=== PATIENT | male | born 1950 | race Hispanic/Latino ===

== ENCOUNTER 2021-06-13 09:23 | Inpatient (IN) | payer SELFPAY ==
[2021-06-13] MEDS ORDERED: niCARdipine 25 MG/10 ML VIAL ONE (10:09)
[2021-06-13 10:19] LABS: ALT (SGPT) 27 U/L (8-55); AST (SGOT) 31 U/L (5-34); Albumin 3.7 g/dL (3.4-4.8); Alkaline Phosphatase 123 U/L (40-110); Anion Gap 12 mmol/L (10-20); BUN (Urea Nitrogen) 14 mg/dL (8.4-25.7); Calc. Creatinine Clearance 0 mL/min (70-130); Calcium 8.8 mg/dL (7.8-10.44); Carbon Dioxide 21 mmol/L (23-31); Chloride 109 mmol/L (98-107); Globulin 3.2 g/dL (2.4-3.5); Glucose 118 mg/dL (83-110); Potassium 3.8 mmol/L (3.5-5.1); Protein, Total 6.9 g/dL (5.8-8.1); Sodium 138 mmol/L (136-145)
[2021-06-13 10:40] LABS: INR-International Normal Ratio 1.1; Prothrombin Time 14.6 sec (12.0-14.7)
[2021-06-13 10:41] LABS: PTT 31.7 sec (22.9-36.1)
[2021-06-13 10:52] LABS: #Eosinphils 0.1 thou/uL (0.0-0.7); #Lymphocytes 0.6 thou/uL (1.20-3.40); #Monocytes 0.3 thou/uL (0.11-0.59); #Neutrophils 2.1 thou/uL (1.40-6.50); %Eosinophils 1.6 % (0.0-10.0); %Lymphocytes 20.8 % (21.0-51.0); %Monocytes 8.6 % (0.0-10.0); %Neutrophils 68.9 % (42.0-75.0); Hemoglobin 13.1 g/dL (14.0-18.0); Mean Corpuscular HGB CONC 33.7 g/dL (32.0-36.0); Mean Corpuscular Hemoglobin 30.9 pg (27.0-31.0); Mean Corpuscular Volume 91.6 fL (78.0-98.0); Platelet Count 56 thou/uL (130-400); RBC Distribution Width 13.2 % (11.5-14.5); Red Blood Cell (RBC) Count 4.25 mill/uL (4.70-6.10)
[2021-06-13 10:53] LABS: Platelet Morphology Comment Appears Decreased
[2021-06-13] MEDS ORDERED: Labetalol HCl 100 MG/20 ML VIAL SLOW IVP PRN (11:41)
[2021-06-13 11:44] LABS: SARS-CoV-2 NAA Rapid Test Not Detected (NotDetected)
[2021-06-13 13:06] LABS: Troponin I Less than 0.010 ng/mL (< 0.028)
[2021-06-13] MEDS ORDERED: niCARdipine 25 MG in Sodium Chloride 0.9% 250 ML 250 ML IVPB PRN (13:55)
[2021-06-13] MEDS ORDERED: Electrolyte Replacement Protocol 1 EACH IVPB ONE (13:55)
[2021-06-13] MEDS ORDERED: Ondansetron ODT 4 MG TAB PO PRN (13:57)
[2021-06-13] MEDS ORDERED: Ondansetron PF 4 MG/2 ML Vial IVP PRN (13:57)
[2021-06-13] MEDS ORDERED: diphenhydrAMINE 25 MG CAP ONE (14:12)
[2021-06-13] MEDS ORDERED: Electrolyte Replacement Protocol FS PRN (14:15)
[2021-06-13] MEDS ORDERED: diphenhydrAMINE 50 MG/ML VIAL ONE (14:23)
[2021-06-13] MEDS ORDERED: Metoclopramide HCl 10 MG/2 ML VIAL ONE (14:23)
[2021-06-13] MEDS ORDERED: FLU VACC QS2021-22(65YR UP)/PF 240 MCG/0.7 ML SYRINGE IM ONE (16:30)
[2021-06-13] MEDS: Acetaminophen 325 MG TAB PO PRN (17:59)
[2021-06-13] MEDS: Sodium Chloride 0.9% 1,000 ML IV SCH (20:10)
[2021-06-13] MEDS: Famotidine 20 MG TAB PO SCH (20:11)
[2021-06-13] MEDS: Docusate 100 MG CAP PO SCH (20:11)
[2021-06-13] MEDS: Nadolol 40 MG TAB PO SCH (20:11)
[2021-06-13] MEDS: Famotidine/PF 20 mg/2ml Vial SLOW IVP SCH (20:33)
[2021-06-14] MEDS: Acetaminophen 325 MG TAB PO PRN ×2 (00:25→20:06)
[2021-06-14 04:03] LABS: #Eosinphils 0.1 thou/uL (0.0-0.7); #Lymphocytes 0.5 thou/uL (1.20-3.40); #Monocytes 0.2 thou/uL (0.11-0.59); #Neutrophils 1.6 thou/uL (1.40-6.50); %Basophils 1.2 % (0.0-1.0); %Eosinophils 3.2 % (0.0-10.0); %Lymphocytes 20.8 % (21.0-51.0); %Monocytes 9.3 % (0.0-10.0); %Neutrophils 65.6 % (42.0-75.0); Hemoglobin 12.1 g/dL (14.0-18.0); Mean Corpuscular HGB CONC 33.6 g/dL (32.0-36.0); Mean Corpuscular Hemoglobin 30.7 pg (27.0-31.0); Mean Corpuscular Volume 91.3 fL (78.0-98.0); Mean Platelet Volume 9.5 fL (7.4-10.4); Platelet Count 62 thou/uL (130-400); RBC Distribution Width 12.9 % (11.5-14.5); Red Blood Cell (RBC) Count 3.95 mill/uL (4.70-6.10); White Blood Cell (WBC) Count 2.5 thou/uL (4.8-10.8)
[2021-06-14 04:06] LABS: Anion Gap 11 mmol/L (10-20); BUN (Urea Nitrogen) 13 mg/dL (8.4-25.7); Calc. Creatinine Clearance 66 mL/min (70-130); Calcium 8.6 mg/dL (7.8-10.44); Carbon Dioxide 20 mmol/L (23-31); Chloride 114 mmol/L (98-107); Glucose 95 mg/dL (83-110); Potassium 3.7 mmol/L (3.5-5.1); Sodium 141 mmol/L (136-145)
[2021-06-14 08:13] LABS: Magnesium 1.9 mg/dL (1.6-2.6)
[2021-06-14] MEDS: Famotidine 20 MG TAB PO SCH ×3 (09:22→20:27)
[2021-06-14] MEDS: Famotidine/PF 20 mg/2ml Vial SLOW IVP SCH (09:22)
[2021-06-14] MEDS: Nadolol 40 MG TAB PO SCH ×3 (09:22→20:27)
[2021-06-14] MEDS: Docusate 100 MG CAP PO SCH ×3 (09:22→20:25)
[2021-06-14] MEDS: Sodium Chloride 0.9% 1,000 ML IV SCH (09:22)
[2021-06-14] MEDS ORDERED: Magnesium 2 GM/50 ML 2 GM in Premix Bag 1 BAG IVPB SCH (13:15)
[2021-06-14] MEDS: hydrALAZINE 20 MG/ML VIAL SLOW IVP PRN ×2 (16:22→20:34)
[2021-06-14] MEDS: Spironolactone 25 MG TAB PO SCH ×2 (20:07→20:26)
[2021-06-14] MEDS: Acetaminophen 650 MG Suppository PR PRN (20:35)
[2021-06-14] MEDS ORDERED: hydrALAZINE 25 MG TAB PO SCH (21:00)
[2021-06-15 05:07] VITALS: BMI 18.1
[2021-06-15] MEDS: Acetaminophen 650 MG Suppository PR PRN ×3 (05:08→23:37)
[2021-06-15] MEDS: hydrALAZINE 20 MG/ML VIAL SLOW IVP PRN ×4 (08:19→23:38)
[2021-06-15] MEDS: Docusate 100 MG CAP PO SCH ×2 (08:26→20:43)
[2021-06-15] MEDS: Nadolol 40 MG TAB PO SCH (11:44)
[2021-06-15] MEDS: Furosemide 40 MG TAB PO SCH (11:51)
[2021-06-15] MEDS: Emtricitabine/Tenofovir 200-300 MG TAB PO SCH (11:51)
[2021-06-15] MEDS: Famotidine 20 MG TAB PO SCH ×2 (11:51→20:43)
[2021-06-15] MEDS: Spironolactone 25 MG TAB PO SCH ×2 (11:51→16:06)
[2021-06-15] MEDS ORDERED: Morphine 4 MG/ML VIAL SLOW IVP SCH (13:45)
[2021-06-15] MEDS ORDERED: Dextrose 5 % And 0.9 % NaCl 1,000 ML IV SCH (16:00)
[2021-06-15 22:16] LABS: Troponin I 0.011 ng/mL (< 0.028)
[2021-06-16] MEDS: Spironolactone 25 MG TAB PO SCH ×2 (09:09→18:07)
[2021-06-16] MEDS: Docusate 100 MG CAP PO SCH ×2 (09:09→20:49)
[2021-06-16] MEDS: Famotidine 20 MG TAB PO SCH ×2 (09:09→20:48)
[2021-06-16 09:28] LABS: #Eosinphils 0.1 thou/uL (0.0-0.7); #Lymphocytes 0.8 thou/uL (1.20-3.40); #Monocytes 0.4 thou/uL (0.11-0.59); #Neutrophils 3.2 thou/uL (1.40-6.50); %Basophils 0.7 % (0.0-1.0); %Lymphocytes 17.6 % (21.0-51.0); %Monocytes 8.3 % (0.0-10.0); %Neutrophils 71.5 % (42.0-75.0); Hemoglobin 14.1 g/dL (14.0-18.0); Mean Corpuscular HGB CONC 33.3 g/dL (32.0-36.0); Mean Corpuscular Hemoglobin 30.7 pg (27.0-31.0); Mean Platelet Volume 9.9 fL (7.4-10.4); Platelet Count 71 thou/uL (130-400); RBC Distribution Width 13.5 % (11.5-14.5); White Blood Cell (WBC) Count 4.4 thou/uL (4.8-10.8)
[2021-06-16 09:43] LABS: ALT (SGPT) 34 U/L (8-55); AST (SGOT) 60 U/L (5-34); Albumin 3.6 g/dL (3.4-4.8); Alkaline Phosphatase 111 U/L (40-110); Anion Gap 12 mmol/L (10-20); BUN (Urea Nitrogen) 21 mg/dL (8.4-25.7); Bilirubin, Total 2.1 mg/dL (0.2-1.2); Calc. Creatinine Clearance 63 mL/min (70-130); Calcium 8.6 mg/dL (7.8-10.44); Carbon Dioxide 21 mmol/L (23-31); Chloride 112 mmol/L (98-107); Globulin 3.2 g/dL (2.4-3.5); Glucose 95 mg/dL (83-110); Magnesium 1.9 mg/dL (1.6-2.6); Phosphorus 2.8 mg/dL (2.3-4.7); Potassium 3.4 mmol/L (3.5-5.1); Protein, Total 6.8 g/dL (5.8-8.1); Sodium 142 mmol/L (136-145)
[2021-06-16] MEDS ORDERED: Potassium Chloride 20 MEQ TAB PO SCH (10:45)
[2021-06-16] MEDS: Emtricitabine/Tenofovir 200-300 MG TAB PO SCH (10:49)
[2021-06-16] MEDS ORDERED: Magnesium 2 GM/50 ML 2 GM in Premix Bag 1 BAG IVPB SCH (11:00)
[2021-06-16] MEDS: Nadolol 40 MG TAB PO SCH (11:44)
[2021-06-16] MEDS: Furosemide 40 MG TAB PO SCH (11:44)
[2021-06-16] MEDS ORDERED: D5 1/2 NS w/20 mEq KCL 1,000 ML IV SCH ×2 (15:45→16:22)
[2021-06-16] MEDS: hydrALAZINE 20 MG/ML VIAL SLOW IVP PRN (16:46)
[2021-06-17] MEDS: Spironolactone 25 MG TAB PO SCH ×2 (10:11→18:24)
[2021-06-17] MEDS: Nadolol 40 MG TAB PO SCH (10:11)
[2021-06-17] MEDS: Emtricitabine/Tenofovir 200-300 MG TAB PO SCH (10:11)
[2021-06-17] MEDS: Famotidine 20 MG TAB PO SCH ×2 (10:12→21:30)
[2021-06-17] MEDS: Furosemide 40 MG TAB PO SCH (10:12)
[2021-06-17] MEDS: Docusate 100 MG CAP PO SCH ×2 (10:14→21:30)
[2021-06-17] MEDS: hydrALAZINE 20 MG/ML VIAL SLOW IVP PRN (14:03)
[2021-06-17] MEDS ORDERED: traMADol HCl 50 MG TAB PO SCH (21:15)
[2021-06-18] MEDS: Emtricitabine/Tenofovir 200-300 MG TAB PO SCH (11:42)
[2021-06-18] MEDS: Spironolactone 25 MG TAB PO SCH (11:42)
[2021-06-18] MEDS: Famotidine 20 MG TAB PO SCH (11:43)
[2021-06-18] MEDS: Furosemide 40 MG TAB PO SCH (11:43)
[2021-06-18] MEDS: Nadolol 40 MG TAB PO SCH (11:43)
[2021-06-18 12:21] VITALS: BP 155/88; TEMP 97.9
[2021-06-18] MEDS: Docusate 100 MG CAP PO SCH (12:49)
== END 2021-06-18 16:35 | disposition home or self-care (01) | DRG 64 ==
LOC: ERS 09:23 → ERHOLD 12:00 → NEURO 15:35 → IMCU/EMU 15:48 → NEURO 06-14 19:31
PROVIDERS: ADMIT Internal Medicine; ATTEND Internal Medicine
PROC: 6A550Z2 Pheresis of Platelets, Single (ICD-10-PCS; principal; 2021-06-13)
DX: I61.0 Nontraumatic intracerebral hemorrhage in hemisphere, subcortical (principal); E43 Unspecified severe protein-calorie malnutrition; G81.94 Hemiplegia, unspecified affecting left nondominant side; D61.818 Other pancytopenia; Z68.1 Body mass index [BMI] 19.9 or less, adult; Z21 Asymptomatic human immunodeficiency virus [HIV] infection status; Z20.822 Contact with and (suspected) exposure to COVID-19; R29.810 Facial weakness; B18.2 Chronic viral hepatitis C; I10 Essential (primary) hypertension; E87.6 Hypokalemia; E83.42 Hypomagnesemia; K74.60 Unspecified cirrhosis of liver; R13.10 Dysphagia, unspecified; R29.711 NIHSS score 11; Z79.899 Other long term (current) drug therapy; Z87.442 Personal history of urinary calculi
CPT/HCPCS: 0240U; 36415; 36416; 36430; 70450; 71045; 74230; 80048; 80053; 83735; 84100; 84484; 85025; 85610; 85730; 86850; 86900; 86901; 90471; 90732; 93005; 93010; 96365; 96366; 96375; G0009; J0360; J1200; J2270; J2765; J3475; J3480; J7042; J7050; P9035

== ENCOUNTER 2023-01-13 12:07 | Inpatient (IN) | payer MEDICAID, SELFPAY ==
[~2023-01-13 12:07] MED LIST: Iopamidol-370 76% 500 ML MDV (1 ML CHARGE) ONE
[2023-01-13 12:59] LABS: #Eosinphils 0.1 thou/uL (0.0-0.7); #Monocytes 0.3 thou/uL (0.11-0.59); %Basophils 1.1 % (0.0-1.0); %Eosinophils 1.9 % (0.0-10.0); %Lymphocytes 13.6 % (21.0-51.0); %Monocytes 9.4 % (0.0-10.0); Hematocrit 31.6 % (42.0-52.0); Hemoglobin 9.3 g/dL (14.0-18.0); Mean Corpuscular HGB CONC 29.4 g/dL (32.0-36.0); Mean Corpuscular Hemoglobin 22.8 pg (27.0-31.0); Mean Corpuscular Volume 77.5 fl (78.0-98.0); Mean Platelet Volume 11.8 fL (7.4-10.4); RBC Distribution Width 16.2 % (11.5-14.5); Red Blood Cell (RBC) Count 4.08 mill/uL (4.70-6.10); White Blood Cell (WBC) Count 2.7 10x3/uL (4.8-10.8)
[2023-01-13 13:02] LABS: Platelet Count 63 10x3/uL (130-400)
[2023-01-13 13:14] LABS: ALT (SGPT) 19 U/L (8-55); AST (SGOT) 23 U/L (5-34); Albumin 3.4 g/dL (3.4-4.8); Alkaline Phosphatase 114 U/L (40-110); Anion Gap 13 mmol/L (10-20); BUN (Urea Nitrogen) 11 mg/dL (8.4-25.7); Bilirubin, Total 0.9 mg/dL (0.2-1.2); Calc. Creatinine Clearance 0 mL/min (70-130); Calcium 8.7 mg/dL (7.8-10.44); Carbon Dioxide 22 mmol/L (23-31); Chloride 108 mmol/L (98-107); Estimated GFR 91; Globulin 3.9 g/dL (2.4-3.5); Glucose 127 mg/dL (83-110); Lipase 28 U/L (8-78); Protein, Total 7.3 g/dL (5.8-8.1); Sodium 139 mmol/L (136-145)
[2023-01-13] MEDS ORDERED: Aspirin Chewable 81 MG TAB ONE (14:57)
[2023-01-13] MEDS ORDERED: LevoFLOXacin 750 mg/D5W 150 ml Premix Bag ONE (14:57)
[2023-01-13] MEDS ORDERED: Cefepime 2 GM VIAL ONE (14:57)
[2023-01-13 17:35] VITALS: BMI 21.9
[2023-01-13 20:10] LABS: Troponin I Less than 0.010 ng/mL (< 0.028)
[2023-01-13] MEDS: Acetaminophen 325 MG TAB PO PRN (20:35)
[2023-01-13 23:02] LABS: Troponin I Less than 0.010 ng/mL (< 0.028)
[2023-01-14] MEDS: Cefepime 1 GM in Sodium Chloride 0.9% 100 ML IVPB SCH ×2 (02:12→14:25)
[2023-01-14 03:49] LABS: Strep pneumo Urine Ag NEGATIVE (NEGATIVE)
[2023-01-14] MEDS ORDERED: Emtricitabine/Tenofovir 200-300 MG TAB PO SCH (09:00)
[2023-01-14] MEDS ORDERED: Non-Formulary Item 1 EACH (Dolutegravir Sodium [Tivicay] 50 MG Tablet) PO SCH (09:00)
[2023-01-14] MEDS: Doxycycline 100 MG CAP PO SCH ×2 (09:05→20:05)
[2023-01-14] MEDS: Emtricitabine/Tenofovir 200-300 MG TAB PO SCH (09:06)
[2023-01-14 10:19] LABS: #Eosinphils 0.1 thou/uL (0.0-0.7); #Monocytes 0.2 thou/uL (0.11-0.59); #Neutrophils 1.6 thou/uL (1.40-6.50); %Basophils 0.9 % (0.0-1.0); %Eosinophils 2.3 % (0.0-10.0); %Lymphocytes 15.2 % (21.0-51.0); %Monocytes 8.8 % (0.0-10.0); %Neutrophils 72.8 % (42.0-75.0); Hematocrit 32.3 % (42.0-52.0); Hemoglobin 9.6 g/dL (14.0-18.0); Mean Corpuscular HGB CONC 29.7 g/dL (32.0-36.0); Mean Corpuscular Hemoglobin 23.2 pg (27.0-31.0); Mean Corpuscular Volume 78.2 fl (78.0-98.0); RBC Distribution Width 16.4 % (11.5-14.5); Red Blood Cell (RBC) Count 4.13 mill/uL (4.70-6.10); White Blood Cell (WBC) Count 2.2 10x3/uL (4.8-10.8)
[2023-01-14 10:46] LABS: Platelet Count 57 10x3/uL (130-400)
[2023-01-14 10:49] LABS: Anion Gap 13 mmol/L (10-20); BUN (Urea Nitrogen) 12 mg/dL (8.4-25.7); Calc. Creatinine Clearance 57 mL/min (70-130); Calcium 8.9 mg/dL (7.8-10.44); Carbon Dioxide 21 mmol/L (23-31); Chloride 108 mmol/L (98-107); Estimated GFR 90; Glucose 140 mg/dL (83-110); Potassium 4.1 mmol/L (3.5-5.1); Sodium 138 mmol/L (136-145)
[2023-01-14] MEDS ORDERED: LevoFLOXacin 500 mg/D5W 500 MG in Premix Bag 1 BAG IVPB SCH (16:00)
[2023-01-15] MEDS: Cefepime 1 GM in Sodium Chloride 0.9% 100 ML IVPB SCH ×2 (03:23→15:00)
[2023-01-15 06:24] LABS: #Eosinphils 0.1 thou/uL (0.0-0.7); #Monocytes 0.2 thou/uL (0.11-0.59); #Neutrophils 1.1 thou/uL (1.40-6.50); %Basophils 0.5 % (0.0-1.0); %Eosinophils 4.7 % (0.0-10.0); %Lymphocytes 25.9 % (21.0-51.0); %Monocytes 11.9 % (0.0-10.0); %Neutrophils 56.5 % (42.0-75.0); Hematocrit 29.2 % (42.0-52.0); Hemoglobin 8.6 g/dL (14.0-18.0); Mean Corpuscular HGB CONC 29.5 g/dL (32.0-36.0); Mean Corpuscular Hemoglobin 22.9 pg (27.0-31.0); Mean Corpuscular Volume 77.9 fl (78.0-98.0); Mean Platelet Volume 11.7 fL (7.4-10.4); RBC Distribution Width 16.2 % (11.5-14.5); Red Blood Cell (RBC) Count 3.75 mill/uL (4.70-6.10); White Blood Cell (WBC) Count 1.9 10x3/uL (4.8-10.8)
[2023-01-15 06:25] LABS: Platelet Count 59 10x3/uL (130-400)
[2023-01-15 06:49] LABS: Anion Gap 12 mmol/L (10-20); BUN (Urea Nitrogen) 14 mg/dL (8.4-25.7); Calc. Creatinine Clearance 60 mL/min (70-130); Calcium 8.5 mg/dL (7.8-10.44); Carbon Dioxide 20 mmol/L (23-31); Chloride 109 mmol/L (98-107); Estimated GFR 92; Glucose 94 mg/dL (83-110); Potassium 4.3 mmol/L (3.5-5.1); Sodium 137 mmol/L (136-145)
[2023-01-15] MEDS: Acetaminophen 325 MG TAB PO PRN (09:03)
[2023-01-15] MEDS: Doxycycline 100 MG CAP PO SCH ×2 (09:03→21:12)
[2023-01-15] MEDS: Emtricitabine/Tenofovir 200-300 MG TAB PO SCH (09:03)
[2023-01-15 14:39] LABS: %CD4 (Helper/Inducer) 25.1 % (30.8-58.5); Absolute CD4 100 /uL (359-1519); Lymphocytes/Gated Cell Count 0.4 x10E3/uL (0.7-3.1); Total Lymphocyte 16 % (Not Estab.); WBC Total Count 2.2 x10E3/uL (3.4-10.8)
[2023-01-16 00:12] LABS: HIV-1 Quantitative, RNA PCR <20 copies/mL (.)
[2023-01-16] MEDS: Cefepime 1 GM in Sodium Chloride 0.9% 100 ML IVPB SCH (03:12)
[2023-01-16 05:46] LABS: #Eosinphils 0.1 thou/uL (0.0-0.7); #Monocytes 0.2 thou/uL (0.11-0.59); #Neutrophils 1.1 thou/uL (1.40-6.50); %Basophils 1.1 % (0.0-1.0); %Eosinophils 5.5 % (0.0-10.0); %Monocytes 13.2 % (0.0-10.0); %Neutrophils 57.7 % (42.0-75.0); Hematocrit 29.6 % (42.0-52.0); Hemoglobin 8.8 g/dL (14.0-18.0); Mean Corpuscular HGB CONC 29.7 g/dL (32.0-36.0); Mean Corpuscular Volume 77.3 fl (78.0-98.0); Mean Platelet Volume 10.6 fL (7.4-10.4); RBC Distribution Width 16.5 % (11.5-14.5); Red Blood Cell (RBC) Count 3.83 mill/uL (4.70-6.10); White Blood Cell (WBC) Count 1.8 10x3/uL (4.8-10.8)
[2023-01-16 05:47] LABS: Platelet Count 59 10x3/uL (130-400)
[2023-01-16 06:10] LABS: Anion Gap 11 mmol/L (10-20); BUN (Urea Nitrogen) 15 mg/dL (8.4-25.7); Calc. Creatinine Clearance 59 mL/min (70-130); Calcium 8.4 mg/dL (7.8-10.44); Carbon Dioxide 21 mmol/L (23-31); Chloride 108 mmol/L (98-107); Estimated GFR 91; Glucose 91 mg/dL (83-110); Potassium 4.3 mmol/L (3.5-5.1); Sodium 136 mmol/L (136-145)
[2023-01-16 08:47] VITALS: BP 126/74; TEMP 97.7
[2023-01-16] MEDS: Emtricitabine/Tenofovir 200-300 MG TAB PO SCH (08:50)
[2023-01-16] MEDS: Doxycycline 100 MG CAP PO SCH (08:50)
[2023-01-18 22:08] LABS: Mycoplasma pneumoniae IgG AB 235 U/mL (0-99); Mycoplasma pneumoniae IgM AB Less than 770 U/mL (0-769)
[2023-01-18 22:08] LABS: L.pneumophilia Abs <0.91 OD ratio (0.00-0.90)
== END 2023-01-16 14:13 | disposition home or self-care (01) | DRG 975 ==
LOC: ERS 12:07 → T4-A 17:05
PROVIDERS: ADMIT Internal Medicine; ATTEND Internal Medicine
DX: J18.9 Pneumonia, unspecified organism (principal); B20 Human immunodeficiency virus [HIV] disease; I69.954 Hemiplegia and hemiparesis following unspecified cerebrovascular disease affecting left non-dominant side; I10 Essential (primary) hypertension; D64.9 Anemia, unspecified; B18.2 Chronic viral hepatitis C; Z98.890 Other specified postprocedural states; Z79.899 Other long term (current) drug therapy; K74.69 Other cirrhosis of liver
CPT/HCPCS: 36415; 70450; 71045; 71275; 80048; 80053; 83690; 84484; 85025; 86361; 86713; 87081; 87385; 87449; 87536; 87633; 93005; 96365; 96367; J0692; J1956; J3490; Q9967